=== PATIENT | female | born 1990 ===

== ENCOUNTER → 2017-10-22 | Outpatient (CLI) | payer OTHER, MEDICAID ==
--- NOTE | 2017-10-22 11:07 | NOWCEV ---
[facility] OUTPATIENT REH[facility] WHEELCHAIR CLINIC EVALUATION AND LETTER OF JUSTIFICATION Patient Name: DAIANA GRECO Physician: REJI Dinh Date: 10/22/17 Therapist: An Parra PT,MSPT Date of : 1990 MR#: [id number] Contact: Daiana Greco Subscriber: DAIANA GRECO Primary Ins: [employer] Subscriber #: [id number] EVALUATION FINDINGS Medical history - Daiana is a 27y/o female who was born with spinal bifida and hydrocephalus. At she underwent a shunt placement, and she has had many revisions of her shunt throughout her life. 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 Daiana has had multiple falls with injury when attempting to ambulate in her home. Most recently he dislocated her L patella which is limiting her ability to stand and transfer. She also reports a significant h/o LBP. Daiana has been an active ultra light weight wheelchair user since 1998 when she was in the first grade. Her current chair is 8 years old and deteriorated to the point where she threw it away because it was no longer functional. She is currently utilizing a rented std MWC which not meeting her needs in the home and community causing her a significant loss of functional independence. She was referred to this clinic by her doctor to have recommendation made for the most medically appropriate ultra light weight MWC to restore Daiana's independence in the home and community. Functional Mobility - Daiana utilizes both an ultra light weight MWC and B custom AFOs to access MRADLs in her home depending on her fluctuating functional status. Daiana can intermittently ambulate with use of B AFOs, she has trialed devices such as crutches and walkers, but finds them difficult to utilize and interfere with her ability to ambulate. Daiana does have a significant fall history that occurs when she ambulates. Her reports h/o breaking a rib, injuring her shoulder and foot, and most recently she subluxed her L patella. She has been unable to ambulate since she subluxed her patella several weeks ago. She also reports that when she shunt is not functioning properly, she uses her wheelchair for access to all MRADLs in the home. Daiana is I with self propulsion of her ultra light weight MWC in the home and in the community on level and uneven surfaces. She is currently utilizing a [employer] MWC which she requires assistance to propel up/down ramps and on uneven surfaces. To complete transfers Daiana utilizes a stand pivot strategy where she pushes up with her UEs and uses her arms to rotates and complete transfers. Daiana is modified I with sup to/from sit transitions. Motor involvement - Daiana has no active movement of her feet. MMT is as follows: ankle DF/PF B: 0/5, knee extension L: 3-/5 and painful, R: 4-/5, hip flexion L: 3-/5, R: 4-/5, B shoulder flexion and abduction: 4/5. B passive ankle DF is limited to 0degrees. Her L hip is limited in IR and she has difficulty achieving neutral. Posture - Daiana sits with a level pelvis and shoulders, she has a posterior pelvic tilt and frequently sits with a slouched posture. Her L hip is externally rotated and her R foot is externally rotated more than her L. Skin /Sensation - Daiana has impaired sensation below her waist placing her at high risk for skin breakdown. She does not have a h/o pressure sores. She has poor circulation to her lower legs, and both lower legs and feet are red in color and cold to touch. She has a large scar at the base of her spine from her spinal fusion. She utilizes a catheter for bladder management and is continent of bowel. Endurance - When utilizing an appropriately configured utralight weight MWC, Daiana can be in and propelling her chair at a community level all day. She frequently takes her chair off-roading and on trails to go hiking with her family. She is able to independently self propel off roads/on trails. In the [employer] MWC she is currently utilizing, she is not able to access to the community independently as she is not able to propel the chair up/down ramps or on uneven surfaces. ADLs - Daiana's is modified I with all ADLs in the home. She uses her ultra light MWC to access ADLs and to perform tasks such as cooking and cleaning, as well as assisting her 5 year old daughter with ADLs. Cognitive/Social - Daiana lives with her and 5 year old daughter in an accessible apartment. 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 She utilizes her ultralight wheelchair to assist her daughter in the home, and to take her to the bus. She was been unable to perform these tasks in the std MWC which she is currently renting. Current wheelchair - Daiana had been utilizing an ultra light weight MWC with veralite cushion and frog legs for the last 8 years. The chair deteriorated to the point where it could no longer be utilized due to constant use. She reports that the spokes were coming out of the wheels and the wheels where no longer fitting on the chair. She ended up throwing the chair away due to it's state of disrepair, and was provided with a std MWC for temporary use. The std wheelchair is not meeting her needs. In the std wheelchair Daiana has gotten stuck when bringing her daughter out to the bus and required physical external assistance. In the std chair Daiana is not able to propel up/down ramps/ unlevel surfaces outside her home, and is not able to propel over grass or gravel to assist her daughter or participate in community level activity. MEDICAL and FUNCTIONAL NEED/OBJECTIVES * Needed to replace Daiana's ultra light weight MWC and seating system which has deteriorated to the point of disrepair, to allow Daiana to safely and independently continue accessing MRADLs in her home and in the community, as well as to assist her 5y/o daughter with MADLs in the home and community. EQUIPMENT RECOMMENDATIONS AND JUSTIFICATIONS The following recommendations are believed to be the most cost effective way to meet the patients medical and functional needs. * Ultrlight weight rigid frame MWC ([employer]): Needed to replace Daiana's current ultra light weight MWC which deteriorated to the point where it could not be used and she had to throw it away. Daiana is only intermittently able to ambulate with use of ADs such as B AFOs, and is not able to ambulate with ADs such as a rw or crutches. When her shunt is not functioning properly, and when experiencing pain from multiple orthopaedic injuries, that typically occur due to falls when attempting to ambulate Daiana utilizes her ultra light MWC to access all MRADLs in her home, as well as to assist her 5 y/o daughter at a community level. Daiana is not able to self propel a std MWC or even a light weight MWC at a community level due to poor configuration and weight of these chairs. In a std MWC and light weight MWC the rear jim is not able to be moved forward, and Daiana cannot generate enough force to propel these chair up ramps, or on uneven surfaces, and has gotten stuck requiring external assistance when attempting to take her daughter to the bus when utilizing these chairs. In an ultra light MWC, the rear jim can be positioned forward enabling Daiana to negotiate obstacles and propel up/down ramps independently in the community. Daiana has been utilizing an ultra light MWC independently for both household and community mobility since 1998. Daiana is able to safely and independently complete transfers to/from her ultra light weight MWC. * Pneumatic high pressure tires: Needed to decrease roll resistance when Daiana is self propelling and assisting her daughter at a community level. This will allow Daiana to maintain her independence when propelling up/down ramps and on uneven surfaces. * Veralite evolution seat cushion: Needed to provide Daiana with optimal pressure distribution when sitting in her chair due to her diminished sensation below her waist. The veralite evolution will maintain Daiana's pelvic position when propelling on uneven terrain. This will manage her LBP and maintain her upper trunk and shoulders in an optimal position to generate force to self propel. An off the shelf cushion would not maintain Daiana's pelvic position, therefore decreasing her efficiency with self propulsion , increasing her LBP, and would place her at risk for skin breakdown. Daiana had been utilizing a veralite cushion on her previous ultra light MWC without issue. * Corbac backrest: Needed to provide postural support when in her ultra light weight MWC. The adjustable tension of this backrest will allow Daiana to maintain her posture and manage her LBP without adding significant weight to the chair. Utilization of a sling or off the shelf back rest would not allow Daiana to maintain her posture when self propelling and would compromise the position of her shoulders limiting her ability to self propel up ramps and on uneven surfaces at a community level. * Frog legs: Needed for shock absorption and vibration dampening when propelling her chair on rough terrain, as Daiana is a very active user and frequently takes her chair on trails to allow her to hike with her family. Without the frog legs Daiana will experience exacerbation of her LBP, as difficulty managing her chair on uneven terrain, which would limit her ability to participate at a community level with her family. * Soft roll vania: Needed to increase durability and vibration dampening to allow Daiana to self propel over uneven surfaces without increasing her LBP. * Swing away tubular armrests: Needed to allow Daiana to safely complete transfers where she pushes strongly off her wheelchair armrests to stand and pivot. The tubular model is necessary to prevent arm rest from interfering with self propulsion. * Calf strap: Needed to prevent Daiana's legs from falling backward and interfering with propulsion, especially when propelling on uneven terrain and on trails. * Flip down push handles: Needed so that push handles do not interfere with self propulsion. * Seatbelt: Needed to secure Daiana's pelvis when self propelling on uneven terrain to prevent from fallout out of her chair. * Standard wheel locks: Needed to prevent Daiana's chair from moving when performing transfers and when she is performing ADLs from her chair. * Anti-tippers: Needed to prevent Daiana from tipping her chair over backward when propelling on uneven surfaces. * Under seat storage pouch: Needed to allow Daiana to easily store personal items so they do not interfere with self propulsion. These recommendations are based on the likelihood that Daiana will require the use of a wheelchair to access MRADLs in the home and to access the community for the rest of her life. If you have any questions or concerns regarding the stated recommendations, please feel free to contact the therapist at . Thank you for your cooperation in obtaining the necessary equipment for this patient. BLAZE Mora
== END ==
DX: Z46.89 Encounter for fitting and adjustment of other specified devices (principal); Q05.9 Spina bifida, unspecified
CPT/HCPCS: 97162-GP